=== PATIENT | male | born 1985 | race Caucasian/White ===

== ENCOUNTER 2017-06-25 15:57 | Emergency (ER) | payer BC ==
--- NOTE | 2017-06-25 16:44 | EDM.PDOC ---
ED HPI GENERAL MEDICAL PROBLEM - General Chief Complaint: ENT Problem Stated Complaint: LT EAR HURTS Time Seen by Provider: 06/25/17 16:38 Source of Information: Reports: Patient History Limitations: Reports: No Limitations - History of Present Illness INITIAL COMMENTS - FREE TEXT/NARRATIVE: HISTORY AND PHYSICAL: []he comes with ear pain on the left ear History of Present Illness: []Patient has history of prosthetic insertion his earwax Review of Systems: As per history of present illness and below otherwise all systems reviewed and negative. Past medical history: As per history of present illness and as reviewed below otherwise noncontributory. Surgical history: As per history of present illness and as reviewed below otherwise noncontributory. Social history: No reported history of drug or alcohol abuse. Family history: As per history of present illness and as reviewed below otherwise noncontributory. Physical exam: Alert gentleman who answers questions appropriately in full sentences without any shortness of breath cooperative with examination HEENT: Atraumatic, normocehpalic, pupils reactive, negative for conjunctival pallor or scleral icterus, mucous membranes moist, throat clear, neck supple, nontender, trachea midline. Left tympanic membrane slight erythema of the canal is slightly erythematous with slight amount of cerumen present in the external canal Right tympanic membrane unremarkable Lungs: Clear to auscultation, breath sounds equal bilaterally, chest non tender. Heart: S1S2, regular, negative for clicks, rubs, or JVD. Abdomen: Soft, nondistended, nontender. Negative for masses or hepatossplenmegaly. Negative for costovertebral tenderness. Pelvis: Stable nontender. Genitourinary: Deferred. Rectal: Deferred Extremities: Atraumatic, negative for cords or calf pain. Neurovascular unremarkable. Neuro: Awake, alert, oriented. Cranial nerves II through XII unremarkable. Cerebellum unremarkable. Motor and sensory unremarkable throughout. Exam nonfocal. Diagnostics: [] Therapeutics: [] Impression: []Otitis externa/ Plan: []Discharge Cortisporin Otic drops Follow-up with ENT specialist Dr. Rj LINTON [facility] [address] [place] [address] [phone] Return To emergency room as needed Definitive disposition and diagnosis as appropriate pending reevaluation and review of above. Onset: Gradual Duration: Day(s):, Getting Worse Left Ear Pain Score (Numeric/FACES): 6 - Related Data Allergies Allergy/AdvReac Type Severity Reaction Status Date / Time No Known Allergies Allergy Verified 06/25/17 16:25 Home Meds: Home Meds Hydrocort/Neomycin/Polymyxin B [Cortisporin Otic Soln] 10 ml EARLF TID #1 bottle 06/25/17 [Rx] Past Medical History - Infectious Disease History Infectious Disease History: Reports: Chicken Pox - Past Surgical History HEENT Surgical History: Reports: Other (See Below) Other HEENT Surgeries/Procedures: Reconstructive surgery L ear Other Musculoskeletal Surgeries/Procedures:: Davon in the R femur,Plate in R radias/ulna, L reconstructive wrist surgery Social & Family History - Family History Family Medical History: Noncontributory - Tobacco Use Smoking Status *Q: Current Every Day Smoker Years of Tobacco use: 12 Packs/Tins Daily: 1 - Caffeine Use Caffeine Use: Reports: Soda - Recreational Drug Use Recreational Drug Use: No ED ROS ENT - Review of Systems Review Of Systems: ROS reveals no pertinent complaints other than HPI. ED EXAM, ENT - Physical Exam Exam: See Below (see dictation) Course - Vital Signs Last Recorded V/S: Last Vital Signs Temp 36.3 C 06/25/17 16:22 Pulse 76 06/25/17 16:22 Resp 18 06/25/17 16:22 BP 128/81 06/25/17 16:22 Pulse Ox 95 06/25/17 16:22 Departure - Departure Time of Disposition: 16:44 Disposition: Home, Self-Care 01 Condition: Good Clinical Impression: Otitis media Qualifiers: Otitis media type: unspecified Chronicity: acute Qualified Code(s): H66.90 - Otitis media, unspecified, unspecified ear - Discharge Information Prescriptions: Hydrocort/Neomycin/Polymyxin B [Cortisporin Otic Soln] 10 ml EARLF TID #1 bottle Referrals: PCP,None [Primary Care Provider] - Additional Instructions: The following information is given to patients seen in the emergency department who are being discharged to home. This information is to outline your options for follow-up care. We provide all patients seen in our emergency department with a follow-up referral. The need for follow-up, as well as the timing and circumstances, are variable depending upon the specifics of your emergency department visit. If you don't have a primary care physician on staff, we will provide you with a referral. We always advise you to contact your personal physician following an emergency department visit to inform them of the circumstance of the visit and for follow-up with them and/or the need for any referrals to a consulting specialist. The emergency department will also refer you to a specialist when appropriate. This referral assures that you have the opportunity for followup care with a specialist. All of these measure are taken in an effort to provide you with optimal care, which includes your followup. Under all circumstances we always encourage you to contact your private physician who remains a resource for coordinating your care. When calling for followup care, please make the office aware that this follow-up is from your recent emergency room visit. If for any reason you are refused follow-up, please contact the [facility] emergency department at and asked to speak to the emergency department charge nurse. Appointment is scheduled with Dr. Rj LINTON [facility] [address] [place] [address] Phone: To the emergency room as needed Prescription will be sent to your pharmacy for Cortisporin otic drops
== END 2017-06-25 16:53 | disposition home or self-care (01) ==
LOC: MW.ED 15:57
DX: H66.92 Otitis media, unspecified, left ear (principal); H60.92 Unspecified otitis externa, left ear; F17.210 Nicotine dependence, cigarettes, uncomplicated
CPT/HCPCS: 99282

== ENCOUNTER 2018-04-19 22:14 | Emergency (ER) | payer BC ==
--- NOTE | 2018-04-19 22:21 | EDM.PDOC ---
ED HPI GENERAL MEDICAL PROBLEM - General Stated Complaint: POSS OVERDOSE Time Seen by Provider: 04/19/18 22:19 Source of Information: Reports: Patient - History of Present Illness INITIAL COMMENTS - FREE TEXT/NARRATIVE: HISTORY AND PHYSICAL: History of present illness: Patient arrives via EMS Apparently a roommate found him unresponsive and placed him in ice water, on EMS arrival he was not alert they did give some bag mask ventilation as well as provided 4 mg of Narcan IM, 2 mg of Narcan IV were also provided Patient is alert however very cold on arrival He did remove his wet clothing and provide warmed blankets as well as warmed normal saline At this time he is alert interactive in no apparent distress Review of systems: As per history of present illness and below otherwise all systems reviewed and negative. Past medical history: As per history of present illness and as reviewed below otherwise noncontributory. Surgical history: As per history of present illness and as reviewed below otherwise noncontributory. Social history: No reported history of drug or alcohol abuse. Family history: As per history of present illness and as reviewed below otherwise noncontributory. Physical exam: HEENT: Atraumatic, normocephalic, pupils reactive, negative for conjunctival pallor or scleral icterus, mucous membranes moist, throat clear, neck supple, nontender, trachea midline. Lungs: Clear to auscultation, breath sounds equal bilaterally, chest nontender. Heart: S1S2, regular, negative for clicks, rubs, or JVD. Abdomen: Soft, nondistended, nontender. Negative for masses or hepatosplenomegaly. Negative for costovertebral tenderness. Pelvis: Stable nontender. Genitourinary: Deferred. Rectal: Deferred. Extremities: Atraumatic, negative for cords or calf pain. Neurovascular unremarkable. Neuro: Awake, alert, oriented. Cranial nerves II through XII unremarkable. Cerebellum unremarkable. Motor and sensory unremarkable throughout. Exam nonfocal. Diagnostics: [CBC CMP troponin EKG chest 1 view drug screen ] Therapeutics: [Warmed normal saline Warmed blankets Removed clothing Patient refuses to provide urine Patient has not required a re-dose of Narcan is been here over 2 hours his roommate is going home to get him some dry clothing and he'll be discharged ] Impression: [ hypothermic on arrival Presumed narcotic overdose with Narcan reversal provided by EMS ] Definitive disposition and diagnosis as appropriate pending reevaluation and review of above. - Related Data Allergies Allergy/AdvReac Type Severity Reaction Status Date / Time No Known Allergies Allergy Verified 04/19/18 22:30 Home Meds: Home Meds . [No Known Home Meds] 04/19/18 [History] Past Medical History - Infectious Disease History Infectious Disease History: Reports: Chicken Pox - Past Surgical History HEENT Surgical History: Reports: Other (See Below) Other HEENT Surgeries/Procedures: Reconstructive surgery L ear Other Musculoskeletal Surgeries/Procedures:: Davon in the R femur,Plate in R radias/ulna, L reconstructive wrist surgery Social & Family History - Family History Family Medical History: Noncontributory - Caffeine Use Caffeine Use: Reports: Soda ED ROS GENERAL - Review of Systems Review Of Systems: See Below ED EXAM, GENERAL - Physical Exam Exam: See Below Course - Vital Signs Last Recorded V/S: Last Vital Signs Temp 96.3 F 04/19/18 22:14 Pulse 99 04/19/18 22:58 Resp 20 04/19/18 22:58 BP 122/75 04/19/18 22:58 Pulse Ox 95 04/19/18 22:58 - Orders/Labs/Meds Orders: Active Orders 24 hr Category Date Time Status EKG Documentation Completion [RC] STAT Care 04/19/18 22:22 Active Chest 1V Frontal [CR] Stat Exams 04/19/18 22:22 Taken DRUG SCREEN, URINE [URCHEM] Stat Lab 04/19/18 22:22 Ordered UA RFX DANIELA AND CULT IF INDIC [URIN] Stat Lab 04/19/18 22:22 Ordered Labs: Laboratory Tests 04/19/18 04/19/18 Range/Units 22:36 22:36 WBC 13.42 H (4.0-11.0) K/uL RBC 4.47 L (4.50-5.90) M/uL Hgb 14.6 (13.0-17.0) g/dL Hct 42.3 (38.0-50.0) % MCV 94.6 (80.0-98.0) fL MCH 32.7 H (27.0-32.0) pg MCHC 34.5 (31.0-37.0) g/dL RDW Std Deviation 45.7 (28.0-62.0) fl RDW Coeff of Piter 13 (11.0-15.0) % Plt Count 223 (150-400) K/uL MPV 10.90 (7.40-12.00) fL Neut % (Auto) 79.9 (48.0-80.0) % Lymph % (Auto) 15.1 L (16.0-40.0) % Clare % (Auto) 3.7 (0.0-15.0) % Eos % (Auto) 1.1 (0.0-7.0) % Baso % (Auto) 0.2 (0.0-1.5) % Neut # (Auto) 10.7 H (1.4-5.7) K/uL Lymph # (Auto) 2.0 (0.6-2.4) K/uL Clare # (Auto) 0.5 (0.0-0.8) K/uL Eos # (Auto) 0.2 (0.0-0.7) K/uL Baso # (Auto) 0.0 (0.0-0.1) K/uL Nucleated RBC % 0.0 /100WBC Nucleated RBCs # 0 K/uL Sodium 140 (136-148) mmol/L Potassium 4.1 (3.5-5.1) mmol/L Chloride 104 (98-107) mmol/L Carbon Dioxide 21.2 (21.0-32.0) mmol/L BUN 13 (7.0-18.0) mg/dL Creatinine 1.1 (0.8-1.3) mg/dL Est Cr Clr Drug Dosing 100.80 mL/min Estimated GFR (MDRD) > 60.0 ml/min Glucose 237 H (74-106) mg/dL Calcium 8.2 L (8.5-10.1) mg/dL Total Bilirubin 0.5 (0.2-1.0) mg/dL AST 90 H (15-37) IU/L ALT 64 H (14-63) IU/L Alkaline Phosphatase 100 (46-116) U/L Troponin I < 0.050 (0.000-0.056) ng/mL Total Protein 6.8 (6.4-8.2) g/dL Albumin 4.0 (3.4-5.0) g/dL Globulin 2.8 (2.6-4.0) g/dL Albumin/Globulin Ratio 1.4 (0.9-1.6) Lipase 300 (73-393) U/L Ethyl Alcohol 41 mg/dL Meds: Medications Discontinued Medications Generic Name Dose Route Start Last Admin Trade Name Sidney PRN Reason Stop Dose Admin Sodium Chloride 1,000 mls @ 999 mls/hr 04/19/18 22:22 04/19/18 22:42 Normal Saline IV 04/19/18 23:22 999 mls/hr STAT ONE Administration Departure - Departure Time of Disposition: 23:31 Disposition: Home, Self-Care 01 Condition: Good Clinical Impression: Opioid overdose, Hyperglycemia - Discharge Information Additional Instructions: Follow-up with primary care and recheck glucose Call phone number below to schedule appropriate follow-up return if symptoms persist or worsen or if new concerning symptoms develop [facility] [address] [place] [phone] The following information is given to patients seen in the emergency department who are being discharged to home. This information is to outline your options for follow-up care. We provide all patients seen in our emergency department with a follow-up referral. The need for follow-up, as well as the timing and circumstances, are variable depending upon the specifics of your emergency department visit. If you don't have a primary care physician on staff, we will provide you with a referral. We always advise you to contact your personal physician following an emergency department visit to inform them of the circumstance of the visit and for follow-up with them and/or the need for any referrals to a consulting specialist. The emergency department will also refer you to a specialist when appropriate. This referral assures that you have the opportunity for follow-up care with a specialist. All of these measure are taken in an effort to provide you with optimal care, which includes your follow-up. Under all circumstances we always encourage you to contact your private physician who remains a resource for coordinating your care. When calling for follow-up care, please make the office aware that this follow-up is from your recent emergency room visit. If for any reason you are refused follow-up, please contact the [facility] emergency department at and asked to speak to the emergency department charge nurse. - My Orders Last 24 Hours: My Active Orders 04/19/18 22:22 EKG Documentation Completion [RC] STAT Chest 1V Frontal [CR] Stat DRUG SCREEN, URINE [URCHEM] Stat UA RFX DANIELA AND CULT IF INDIC [URIN] Stat - Assessment/Plan Last 24 Hours: My Active Orders 04/19/18 22:22 EKG Documentation Completion [RC] STAT Chest 1V Frontal [CR] Stat DRUG SCREEN, URINE [URCHEM] Stat UA RFX DANIELA AND CULT IF INDIC [URIN] Stat
[2018-04-19] MEDS ORDERED: Sodium Chloride 0.9% 1,000 ML IV ONE (22:22)
[2018-04-19 23:06] LABS: CHLORIDE,CL 104 mmol/L (98-107); SODIUM,NA 140 mmol/L (136-148)
--- NOTE | 2018-04-19 23:48 | CR ---
Indication: AMS. Possible OD. Technique: Chest 1 view Comparison: None Findings/Impression: Cardiovascular and mediastinum: Heart size and vasculature are normal in caliber and appearance. Mediastinum is within normal limits. Lungs and pleural space: Lungs are clear. No sign of infiltrate or mass. No sign of pleural effusion. No pneumothorax. Bones and soft tissues: No significant findings. Dictated by Mitch Durán MD @ 04/19/2018 11:47:39 PM Dictated by: Mitch Durán MD @ 04/19/2018 23:47:44 (Electronically Signed)
== END 2018-04-20 00:30 | disposition home or self-care (01) ==
LOC: MW.ED 22:14
DX: T40.2X1A Poisoning by other opioids, accidental (unintentional), initial encounter (principal); R73.9 Hyperglycemia, unspecified
CPT/HCPCS: 36415; 71045; 80053; 83690; 84484; 85025; 93005; 96360; 99285; G0480; J7040; 99284

== ENCOUNTER 2021-06-22 23:46 | Emergency (ER) | payer BC ==
[2021-06-23] MEDS ORDERED: Lidocaine 1% 5 ML VIAL INJECT ONE (00:05)
[2021-06-23] MEDS ORDERED: cefTRIAXone 2 GM in Premix Bag 1 BAG IV ONE (00:35)
[2021-06-23] MEDS ORDERED: Morphine 4 MG/ML VIAL IVPUSH ONE (00:51)
[2021-06-23 01:15] LABS: BLOOD UREA NITROGEN,BUN 17 mg/dL (7.0-18.0); CARBON DIOXIDE,CO2 26.3 mmol/L (21.0-32.0); CHLORIDE,CL 101 mmol/L (98-107); GLUCOSE RANDOM 104 mg/dL (74-106); POTASSIUM,K 3.2 mmol/L (3.5-5.1); SODIUM,NA 137 mmol/L (136-148)
[2021-06-23 02:22] LABS: C. TRACHOMATIS BY PCR NOT DETECTED; N. GONORRHOEAE BY PCR NOT DETECTED
== END 2021-06-23 02:07 | disposition home or self-care (01) ==
LOC: MW.ED 23:46
DX: L03.115 Cellulitis of right lower limb (principal)
CPT/HCPCS: 36415; 73562; 80053; 83605; 85025; 85610; 85652; 86140; 87040; 87491; 87591; 96365; 96375; 99283; J0696; J2270

== ENCOUNTER 2023-03-21 21:56 | Emergency (ER) | payer SELFPAY | END 2023-03-22 00:15 | disposition home or self-care (01) | LOC: MW.ED 21:56 | DX: T39.311A Poisoning by propionic acid derivatives, accidental (unintentional), initial encounter (principal); S20.212A Contusion of left front wall of thorax, initial encounter; Z91.030 Bee allergy status; W19.XXXA Unspecified fall, initial encounter | CPT/HCPCS: 71101-26-LT; 71101-LT; 99282; 99283 ==